=== PATIENT | female | born 1945 | race Caucasian/White ===

== ENCOUNTER → 2016-11-28 | Outpatient (CLI) | payer MEDICARE, OTHER | LOC: SUN.DIA 10:16 | DX: E11.65 Type 2 diabetes mellitus with hyperglycemia (principal); Z79.4 Long term (current) use of insulin; E66.9 Obesity, unspecified; Z68.31 Body mass index [BMI] 31.0-31.9, adult; Z71.3 Dietary counseling and surveillance; E78.5 Hyperlipidemia, unspecified ==

== ENCOUNTER → 2017-01-05 | Outpatient (CLI) | payer MEDICARE, OTHER | LOC: MC.RAD 07:59 | DX: Z12.31 Encounter for screening mammogram for malignant neoplasm of breast (principal) ==

== ENCOUNTER → 2018-02-14 | Outpatient (CLI) | payer MEDICARE, OTHER | LOC: COL.RAD 07:25 | DX: R39.15 Urgency of urination (principal) ==

== ENCOUNTER → 2018-04-25 | Outpatient (CLI) | payer MEDICARE, OTHER | LOC: MC.RAD 07:40 | DX: Z12.31 Encounter for screening mammogram for malignant neoplasm of breast (principal) ==

== ENCOUNTER 2018-08-19 11:07 | Emergency (ER) | payer MEDICARE, OTHER ==
[~2018-08-19] VITALS: Ht 162.6 cm; Wt 82.7 kg
[2018-08-19 11:13] VITALS: TEMP 97.8
[2018-08-19] MEDS ORDERED: GLUCOPHAGE1000 MG PO (11:22)
[2018-08-19] MEDS ORDERED: GLUCOTROL 5M5 MG/TAB PO (11:23)
[2018-08-19] MEDS ORDERED: SYNTHROID0.125 MG/T PO (11:23)
[2018-08-19] MEDS ORDERED: JANUVIA 100MG100 MG PO (11:23)
[2018-08-19] MEDS ORDERED: FARXIGA10 PO (11:23)
[2018-08-19] MEDS ORDERED: METROGEL GEL45 GM TP (11:24)
[2018-08-19] MEDS ORDERED: LIPITOR 80MG80 MG PO (11:24)
[2018-08-19] MEDS ORDERED: ASPIRIN 81M81 MG/TA2 PO (11:24)
[2018-08-19] MEDS ORDERED: TEMOVATE0.05% TP (11:25)
[2018-08-19] MEDS ORDERED: TUMS500 MG (11:25)
[2018-08-19 12:05] LABS: BASO % 0.2 % (0.0-2.0); EOS # 0.2 (0.0-0.7); EOS % 1.3 % (0-4.0); GRAN # 9.5 (1.4-6.5); GRAN % 70.6 % (42.2-75.2); HEMATOCRIT 47.9 % (37.0-47.0); HEMOGLOBIN 15.2 g/dl (12.5-16.0); LYMPH # 2.8 (1.2-3.4); LYMPH % 20.9 % (20.0-51.0); MEAN CELL VOLUME 93 fl (80.0-100.0); MEAN CORPUSCULAR HEMOGLOBIN 30 pg (27.0-31.0); MEAN CORPUSCULAR HGB CONC 32 g/dl (33.0-37.0); MEAN PLATELET VOLUME 10.3 fl (7.4-10.4); MONO # 0.9 (0.1-0.6); MONO % 6.6 % (1.7-9.3); PLATELET COUNT 313 K/mm3 (130-400); RED BLOOD COUNT 5.16 M/mm3 (4.10-5.30)
[2018-08-19 12:07] LABS: PH 5 (5-8); SQUAMOUS EPITHELIAL 0-2 /hpf; URINE APPEARANCE Clear; URINE BACTERIA None Seen /hpf; URINE BILIRUBIN Negative (NEGATIVE); URINE BLOOD Negative (NEGATIVE); URINE COLOR Straw; URINE GLUCOSE 3+ (NEGATIVE); URINE KETONE Negative (NEGATIVE); URINE LEUKOCYTE ESTERASE Negative (NEGATIVE); URINE NITRATE Negative (NEGATIVE); URINE PROTEIN(semi-quant) Negative (NEGATIVE); URINE RBC 0-2 /hpf; URINE UROBILINOGEN Negative (NEGATIVE)
[2018-08-19 12:15] LABS: ALBUMIN 4.6 gm/dL (3.5-5.0); BILIRUBIN,TOTAL 0.5 mg/dL (0.0-1.0); CALCIUM 9.6 mg/dL (8.4-10.2); CREATININE, serum 0.49 mg/dL (0.52-1.25); POTASSIUM 4.3 mmol/L (3.4-5.0); TOTAL PROTEIN 8.3 gm/dL (6.4-8.2)
[2018-08-19 12:21] LABS: COLLECTION METHOD CLEAN CATCH
[2018-08-19] MEDS ORDERED: CEPHALEXIN500 M1 PO (12:29)
[2018-08-19 12:30] VITALS: BP 128/88; PULSE 91
== END 2018-08-19 12:49 | disposition home or self-care (01) ==
LOC: COL.ER 11:07
PROVIDERS: Emergency Medicine
DX: S00.03XA Contusion of scalp, initial encounter (principal); S50.01XA Contusion of right elbow, initial encounter; S40.011A Contusion of right shoulder, initial encounter; E11.9 Type 2 diabetes mellitus without complications; E03.9 Hypothyroidism, unspecified; Z79.84 Long term (current) use of oral hypoglycemic drugs; Z79.82 Long term (current) use of aspirin; W00.0XXA Fall on same level due to ice and snow, initial encounter; W22.8XXA Striking against or struck by other objects, initial encounter; Y92.009 Unspecified place in unspecified non-institutional (private) residence as the place of occurrence of the external cause

== ENCOUNTER → 2019-02-21 | Outpatient (CLI) | payer MEDICARE, OTHER ==
[~2019-02-21] MED LIST: ASPIRIN 81M81 MG/TA2 PO; CEPHALEXIN500 M1 PO; FARXIGA10 PO; GLUCOPHAGE1000 MG PO; GLUCOTROL 5M5 MG/TAB PO; JANUVIA 100MG100 MG PO; LIPITOR 80MG80 MG PO; METROGEL GEL45 GM TP; SYNTHROID0.125 MG/T PO; TEMOVATE0.05% TP; TUMS500 MG
== END ==
LOC: DIA.ED 13:12
DX: E11.9 Type 2 diabetes mellitus without complications (principal); E78.5 Hyperlipidemia, unspecified; E66.9 Obesity, unspecified; Z79.4 Long term (current) use of insulin
CPT/HCPCS: G0108

== ENCOUNTER → 2019-06-26 | Outpatient (CLI) | payer MEDICARE, OTHER | LOC: MC.RAD 08:58 | DX: Z12.31 Encounter for screening mammogram for malignant neoplasm of breast (principal) ==

== ENCOUNTER → 2021-09-16 | Outpatient (CLI) | payer MEDICARE, OTHER | LOC: MC.RAD 10:00 | DX: Z12.31 Encounter for screening mammogram for malignant neoplasm of breast (principal) ==

== ENCOUNTER → 2022-11-07 | Outpatient (CLI) | payer MEDICARE, OTHER | LOC: MC.RAD 13:13 | DX: Z12.31 Encounter for screening mammogram for malignant neoplasm of breast (principal) ==

== ENCOUNTER 2024-01-25 09:47 | Emergency (ER) | payer MEDICARE, OTHER ==
[~2024-01-25] VITALS: Ht 157.5 cm; Wt 79.5 kg
[2024-01-25 11:54] VITALS: BP 140/90; PULSE 93; TEMP 98.1
== END 2024-01-25 11:54 | disposition home or self-care (01) ==
LOC: COL.ER 09:47
DX: S20.212A Contusion of left front wall of thorax, initial encounter (principal); Z87.891 Personal history of nicotine dependence; W22.09XA Striking against other stationary object, initial encounter